=== PATIENT | male | born 1965 | race African-American/Black ===

== ENCOUNTER 2017-02-06 22:23 | Emergency (ER) | payer OTHER | END 2017-02-06 22:54 | disposition home or self-care (01) | LOC: ER 22:23 | DX: S02.5XXA Fracture of tooth (traumatic), initial encounter for closed fracture (principal); F17.200 Nicotine dependence, unspecified, uncomplicated; W22.8XXA Striking against or struck by other objects, initial encounter | CPT/HCPCS: 99283 ==